=== PATIENT | female | born 1965 | race Caucasian/White ===

== ENCOUNTER → 2020-06-18 | Day surgery (SDC) | payer BC, OTHER ==
[~2020-06-18] MED LIST: ATENOLOL50 MG PO; BILBERRY EXTRACT PO; CENTRUM SILVER1 EAC4 PO; CLARITIN10 MG PO; COQ10 PO; COZAAR100 MG PO; CYCLOBENZAPRINE10 MG PO; FISH OIL PO; HIZENTRA4 GM/20 ML SQ; HYDROCHLOROTHIA25 MG PO; LIPITOR40 MG PO; LOW DOSE ASPIRI81 MG PO; METFORMIN HCL500 M2 PO; MOBIC7.5 MG PO; NASACORT16.9 ML; NITROSTAT0.4 MG SL; NORVASC10 MG PO; NOVOLIN 70100 UNIT/1 SQ; OCUVITE ADULT1 EAC1 PO; PLAVIX 75 MG TA75 MG PO; PROZAC20 MG PO; SINGULAIR10 MG PO; TRELEGY ELLIPT1 EACH INH; VENTOLIN HFA 66.7 GM INH; VITAMIN B12 PO; VITAMIN C1000 MG PO; VITAMIN D325 MC6 PO
== END | disposition home or self-care (01) ==
LOC: OR 06:10 → EDSTATUS 07:30
PROVIDERS: Surgery
PROC: 047L3Z1 Dilation of Left Femoral Artery using Drug-Coated Balloon, Percutaneous Approach (ICD-10-PCS; 2020-06-18)
PROC: B41DZZZ Fluoroscopy of Aorta and Bilateral Lower Extremity Arteries (ICD-10-PCS; 2020-06-18)
PROC: 04CL3ZZ Extirpation of Matter from Left Femoral Artery, Percutaneous Approach (ICD-10-PCS; principal; 2020-06-18 07:30)
DX: E11.51 Type 2 diabetes mellitus with diabetic peripheral angiopathy without gangrene (principal); I70.92 Chronic total occlusion of artery of the extremities; I70.202 Unspecified atherosclerosis of native arteries of extremities, left leg; I10 Essential (primary) hypertension; E66.9 Obesity, unspecified; Z79.82 Long term (current) use of aspirin; Z79.4 Long term (current) use of insulin; Z79.899 Other long term (current) drug therapy
CPT/HCPCS: 76000; 82962; C1714; C1725; C1769; C1887; C2623; J1450; J1644; J2001; J2370; J2405; J2704; J2710; J2720; J3010; J3370; J7030; J7040; J7050; J7070; J7120; Q9962

== ENCOUNTER → 2020-07-15 | Outpatient (CLI) | payer OTHER ==
[2020-07-15 11:53] LABS: HEMOGLOBIN 11.3 gm/dl (12.3-15.3); RED BLOOD COUNT 3.85 M/UL (4.00-5.10); WHITE BLOOD COUNT 8.3 K/UL (4.5-11.0)
[2020-07-15 12:12] LABS: BUN/CREATININE RATIO 35 (0-10)
== END ==
LOC: OPSV2 11:13
PROVIDERS: Surgery
DX: Z01.818 Encounter for other preprocedural examination (principal); R91.8 Other nonspecific abnormal finding of lung field; R94.31 Abnormal electrocardiogram [ECG] [EKG]
CPT/HCPCS: 36415; 71046; 80053; 81001; 85025; 85610; 85730; 86850; 86900; 86901; 87086; 93005

== ENCOUNTER 2020-07-16 06:39 | Day surgery (SDC) | payer OTHER ==
[~2020-07-16] VITALS: Ht 162.6 cm; Wt 161.9 kg
--- NOTE | 2020-07-16 18:01 | NUR ---
PATIENT HAS TOLERATED LAYING FLAT WELL. NO ISSUES NOTED TO LEFT CATH ANGIO ENTRANCE SITE. PULSES IN BOTH LOWER EXTREMITIES ARE GOOD. NO ISSUES TO NOTE.
== END 2020-07-16 20:40 | disposition home or self-care (01) ==
LOC: OR 06:39 → EDSTATUS 09:30 → M/S 14:57 → OR 20:40
PROVIDERS: Surgery
PROC: 04CM3ZZ Extirpation of Matter from Right Popliteal Artery, Percutaneous Approach (ICD-10-PCS; 2020-07-16)
PROC: 04CP3ZZ Extirpation of Matter from Right Anterior Tibial Artery, Percutaneous Approach (ICD-10-PCS; 2020-07-16)
PROC: 04CT3ZZ Extirpation of Matter from Right Peroneal Artery, Percutaneous Approach (ICD-10-PCS; 2020-07-16)
PROC: 047K34Z Dilation of Right Femoral Artery with Drug-eluting Intraluminal Device, Percutaneous Approach (ICD-10-PCS; 2020-07-16)
PROC: 047M34Z Dilation of Right Popliteal Artery with Drug-eluting Intraluminal Device, Percutaneous Approach (ICD-10-PCS; 2020-07-16)
PROC: 047P34Z Dilation of Right Anterior Tibial Artery with Drug-eluting Intraluminal Device, Percutaneous Approach (ICD-10-PCS; 2020-07-16)
PROC: 047T34Z Dilation of Right Peroneal Artery with Drug-eluting Intraluminal Device, Percutaneous Approach (ICD-10-PCS; 2020-07-16)
PROC: B41FZZZ Fluoroscopy of Right Lower Extremity Arteries (ICD-10-PCS; 2020-07-16)
PROC: 04CK3ZZ Extirpation of Matter from Right Femoral Artery, Percutaneous Approach (ICD-10-PCS; principal; 2020-07-16 09:30)
DX: E11.51 Type 2 diabetes mellitus with diabetic peripheral angiopathy without gangrene (principal); I70.201 Unspecified atherosclerosis of native arteries of extremities, right leg; J44.9 Chronic obstructive pulmonary disease, unspecified; I10 Essential (primary) hypertension; E78.5 Hyperlipidemia, unspecified; E66.01 Morbid (severe) obesity due to excess calories
CPT/HCPCS: 76000; 82962; C1714; C1725; C1769; C1887; C2623; J0360; J1170; J1644; J2001; J2405; J2704; J2710; J2720; J3370; J7030; J7040; J7050; J7070; J7120; Q9962